=== PATIENT | female | born 1990 | race Caucasian/White ===

== ENCOUNTER 2018-10-10 09:19 | Emergency (ER) | payer SELFPAY ==
[2018-10-10 10:58] VITALS: BMI 31.2
[2018-10-10 11:13] LABS: SQUAMOUS EPITHIAL < 1 /hpf (0-5); URINE BACTERIA RARE (<OCC); URINE BILIRUBIN NEGATIVE (NEGATIVE); URINE BLOOD NEGATIVE (NEGATIVE); URINE CLARITY SLIGHTY-CLOUDY (Clear); URINE COLOR YELLOW (YELLOW); URINE GLUCOSE (UA) NEG (NEGATIVE); URINE LEUKOCYTE ESTERASE LARGE Leu/uL (Negative); URINE PROTEIN NEGATIVE (NEGATIVE); URINE UROBILINOGEN 0.2-1.0 mg/dL (0.2-1.0)
[2018-10-10] MEDS ORDERED: Lactated Ringer's 1,000 ML IV SCH (11:30)
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
[2018-10-10 11:53] LABS: HEMOGLOBIN 13.3 g/dL (12.0-16.0); MEAN CORPUSCULAR HEMOGLOBIN 28.9 pg (27.0-31.0); RBC 4.61 Mil/uL (3.80-5.20); RED CELL DISTRIBUTION WIDTH 14.6 % (11.5-14.5); WHITE BLOOD COUNT 9.3 K/uL (4.8-10.8)
--- NOTE | 2018-10-10 13:14 | OBPN ---
Datetime: 10/10/2018 13:09 IP Progress Note Comment: Patient comfortable without complaints. Plan to check BPP. heart t racing with moderate variability. No decelerations. I discussed plan with patient and all patient q uestions answered. Datetime: 10/10/2018 10:07 Pool Provider: Negative Nitrazine Provider: Negative Ferning Provider: Negative FHR - Baseline A Provider: 150 Gestation - Est Wks by US: 38.5 Vital Signs Provider: Reviewed Vital Signs Provider Details: Blood pressure in high 130s NICHD Accel Fetus A IP Provider: 15X15 FHR Category Provider Fetus A: Category I NICHD Variability Prov Fetus A: Moderate 6-25bpm NICHD Decel Fetus A IP Provider: None
--- NOTE | 2018-10-10 16:08 | US ---
Date of service: 10/10/2018 PROCEDURE: OB Pelvic Ultrasound HISTORY: LMP: 01/13/2018. EGA based on LMP = 38 weeks 4 days COMPARISON: None available. FINDINGS: Biophysical profile: breathing movement = 2 movement = 2 Tone = 2 Amniotic Fluid = 2 Heart rate documented at 145 BPM Dedicated anatomy survey not performed during this exam UTERUS: CERVIX: Measures cm. Long and closed. No cervical abnormality seen. RIGHT OVARY: Measures cm. No mass lesion. Normal flow. LEFT OVARY: Measures cm. No solid mass. Normal flow. FREE FLUID: None. OTHER FINDINGS: None. IMPRESSION: Living intrauterine gestation with Biophysical profile total score = 8/8 Heart rate document at 145 BPM
[2018-10-10] MEDS ORDERED: Terconazole 7 cream 45gm VG SCH (22:00)
[2018-10-10 22:57] VITALS: BP 138/78; PULSE 57; RESP 20; TEMP 98.2; O2SAT 100
== END 2018-10-10 14:45 | disposition home or self-care (01) ==
LOC: H.EROB2 09:19
DX: O34.63 Maternal care for abnormality of vagina, third trimester (principal); N89.8 Other specified noninflammatory disorders of vagina; Z87.59 Personal history of other complications of pregnancy, childbirth and the puerperium; Z3A.38 38 weeks gestation of pregnancy
CPT/HCPCS: 76818; 81003; 85027; 86592; 86850; 86900; 87390; 99284; J7120

== ENCOUNTER 2018-10-11 01:27 | Inpatient (IN) | payer MEDICAID, SELFPAY ==
[2018-10-11] MEDS ORDERED: Oxytocin 10 Units/ml Inj ONE (01:48)
[2018-10-11 01:53] VITALS: BMI 29.5
[2018-10-11] MEDS ORDERED: Lactated Ringer's 1,000 ML IV ONE (01:57)
[2018-10-11] MEDS ORDERED: Oxytocin 30 UNIT in NS 500 ml 30 UNITS/500 ML BAG IV ONE (01:57)
[2018-10-11] MEDS ORDERED: Oxycodone/Acetaminophen 5/325 mg Tab PO PRN ×4 (02:00→03:26)
[2018-10-11] MEDS ORDERED: Benzocaine/Menthol SPRAY TOP PRN ×2 (02:00→03:26)
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
[2018-10-11 02:45] LABS: BASO # 0.1 K/uL (0.0-0.2); BASO % 0.7 % (0.0-2.0); EOS # 0.3 K/uL (0.0-0.7); EOS % 2.2 % (0.0-4.0); MEAN CELL VOLUME 85.3 fl (81.0-99.0); MEAN CORPUSCULAR HEMOGLOBIN 29.3 pg (27.0-31.0); MEAN CORPUSCULAR HGB CONC 34.3 g/dL (33.0-37.0); MEAN PLATELET VOLUME 10.3 fl (7.2-11.7); MONO # 1.3 K/uL (0.0-0.8); MONO % 9.9 % (0.0-10.0); NEUT # 7.6 K/uL (1.8-7.0); NEUT % 57.2 % (50.0-75.0); NRBC % 0.2 % (0.0-0.0); RBC 4.78 Mil/uL (3.80-5.20); RED CELL DISTRIBUTION WIDTH 14.9 % (11.5-14.5); WHITE BLOOD COUNT 13.4 K/uL (4.8-10.8)
[2018-10-11 03:14] VITALS: O2SAT 100
[2018-10-11] MEDS ORDERED: Multivitamin With Minerals Tab PO SCH (09:00)
[2018-10-11] MEDS: Multivitamin With Minerals Tab PO SCH (09:12)
--- NOTE | 2018-10-11 11:03 | OBPPN ---
Datetime: 10/11/2018 10:57 PP Pain Prov: Within normal limits PP Nausea Prov: Denies PP Flatus Prov: Yes PP Breasts Prov: Normal PP Heart Prov: Normal PP Lungs Prov: Normal PP Abdomen/Uterus Prov: Normal PP Lochia Prov: Normal PP Vulva/Perineum Prov: Normal PP CVA Tenderness Prov: Normal PP Extremities Prov: Normal PP Comments Phys Exam Prov: Fundus firm under umbilicus PP Impression Prov: Normal progression PP Plan Prov: Continue present management PP Progress Note Prov: Patient denies CP, no SOB, no N/v, tolerating PO diet, ambulating/voiding wel l, mild lochia, abdominal pain tolerable with meds, mild lochia A/P PPD #0 1. Continue orders 2. Encourage ambulation/ 3. Motrin prn pain IP PP Procedures: None Vital Signs Provider PP: Reviewed; Within Normal Limits
[2018-10-12 06:26] LABS: BASO # 0.1 K/uL (0.0-0.2); BASO % 1.1 % (0.0-2.0); EOS # 0.5 K/uL (0.0-0.7); EOS % 4.7 % (0.0-4.0); HEMOGLOBIN 12.1 g/dL (12.0-16.0); LYMPH # 2.9 K/uL (1.0-4.3); LYMPH % 25.8 % (20.0-40.0); MEAN CELL VOLUME 87.1 fl (81.0-99.0); MEAN CORPUSCULAR HEMOGLOBIN 28.9 pg (27.0-31.0); MEAN CORPUSCULAR HGB CONC 33.1 g/dL (33.0-37.0); MEAN PLATELET VOLUME 9.6 fl (7.2-11.7); MONO # 0.7 K/uL (0.0-0.8); MONO % 6.4 % (0.0-10.0); NEUT # 6.9 K/uL (1.8-7.0); NRBC % 0.2 % (0.0-0.0); RBC 4.2 Mil/uL (3.80-5.20); RED CELL DISTRIBUTION WIDTH 14.8 % (11.5-14.5); WHITE BLOOD COUNT 11.1 K/uL (4.8-10.8)
[2018-10-12] MEDS: Multivitamin With Minerals Tab PO SCH (08:34)
--- NOTE | 2018-10-12 10:28 | OBDS ---
DELIVERY PERSONNEL Delivery Doctor: Ran Vega DO Press Operator Automatic: Jaylin Mcdaniel RN MATERNAL INFORMATION Delivery Anesthesia: None Medications in Delivery: pitocin Estimated Blood Loss (ml): 100 Placenta Cultured: No Maternal Complications: None Provider Comments: Over itnact perineum of live female jude. She was oushing, infant was st ill in bag of waster when head came out. was crying, cord cut and baby placed o mother's [address] for skin to skin. Placetna was delivered intact spontaneously. No laceation noted EBL 100cc She remained stable LABOR SUMMARY EDC: 10/20/2018 00:00 EDC: 10/20/2018 00:00 EDC: 10/10/2018 00:00 No. Babies in Womb: 1 Attempted: Yes Labor Anesthesia: None LABOR INFORMATION Reason for Induction: Not Applicable Onset of Labor: 10/10/2018 22:00 Complete Dilatation: 10/11/2018 01:40 Oxytocin: N/A Group B Beta Strep: Negative Antibiotics # of Doses: 0 Antibiotics Time of Last Dose: n/a Steroids Given: None Reason Steroids Not Administered: Not Applicable MEMBRANES Membranes Rupture Method: Artificial Rupture of Membranes: 10/11/2018 01:45 Length of Rupture (hrs): 0.00 Amniotic Fluid Color: Clear Amniotic Fluid Amount: Moderate Amniotic Fluid Odor: None STAGES OF LABOR Stage 1 hrs: 3 Stage 1 min: 40 Stage 2 hrs: 0 Stage 2 min: 5 Stage 3 hrs: 0 Stage 3 min: 2 Total Time in Labor hrs: 3 Total Time in Labor min: 47 VAGINAL DELIVERY Episiotomy: None Laceration Extension: N/A Laceration Type: None Laceration Repair: Not Applicable Initial Vag Sponge Count: 5 Final Vag Sponge Count: 5 Initial Vag Sharps Count: 0 Final Vag Sharps Count: 0 Sponge Count Correct: Yes Sharps Count Correct: N/A Count Comment: 5 laps pads BABY A INFORMATION Delivery Date/Time: 10/11/2018 01:45 Method of Delivery: Vaginal Born in Route : No : Successful Forceps: N/A Vacuum Extraction: N/A Shoulder Dystocia : No SHOULDER DYSTOCIA BABY A Infant Delivery Date/Time: 10/11/2018 01:45 PRESENTATION/POSITION BABY A Presentation: Cephalic Cephalic Presentation: Vertex Breech Presentation: N/A PLACENTA INFORMATION BABY A Placenta Delivery Time : 10/11/2018 01:47 Placenta Method of Delivery: Spontaneous Placenta Status: Delivered SCORES BABY A Heart Rate 1 min: >100 bpm Resp Effort 1 min: Good Cry Reflex Irritability 1 min: Cough or Sneeze or Pulls Away Muscle Tone 1 min: Active Motion Color 1 min: Body [place], Extremities Blue Resuscitation Effort 1 min: Tactile Stimulation SCORE 1 MIN: 9 Heart Rate 5 min: >100 bpm Resp Effort 5 min: Good Cry Reflex Irritability 5 min: Cough or Sneeze or Pulls Away Muscle Tone 5 min: Active Motion Color 5 min: Body [place], Extremities Blue Resuscitation Effort 5 min: Tactile Stimulation SCORE 5 MIN: 9 INFORMATION BABY A Gestational Age at Delivery: 38.5 Gestational Status: Term Outcome : Liveborn Condition : Stable Infant Sex: Female IDENTIFICATION/MEDS BABY A ID Band Number: [id number] ID Band Location: Left Leg; Left Arm WEIGHT/LENGTH BABY A Birthweight (gms): 2410 Weight (lb): 5 Infant Weight (oz): 5 CORD INFORMATION BABY A No. Cord Vessels: 3 Nuchal Cord : N/A Cord Blood Taken: Yes Infant Suction: Mouth; Nose ASSESSMENT BABY A Complications: None Physical Findings at Delivery: Within Normal Limits Infant Respirations: Appears Normal Forging Press Setter Up/ALS Called : No Care By: Aramis Daly RN / Dr Avalos Transferred To: Remains with Mother
--- NOTE | 2018-10-12 10:30 | OBDS ---
DELIVERY PERSONNEL Delivery Doctor: Ran Vega DO Industrial Relations Specialist: Jaylin Mcdaniel RN MATERNAL INFORMATION Delivery Anesthesia: None Medications in Delivery: pitocin Estimated Blood Loss (ml): 100 Placenta Cultured: No Maternal Complications: None Provider Comments: Over itnact perineum of live female jude. She was oushing, infant was st ill in bag of waster when head came out. was crying, cord cut and baby placed o mother's [address] for skin to skin. Placetna was delivered intact spontaneously. No laceation noted EBL 100cc She remained stable LABOR SUMMARY EDC: 10/20/2018 00:00 No. Babies in Womb: 1 Attempted: Yes Labor Anesthesia: None LABOR INFORMATION Reason for Induction: Not Applicable Onset of Labor: 10/10/2018 22:00 Complete Dilatation: 10/11/2018 01:40 Oxytocin: N/A Group B Beta Strep: Negative Antibiotics # of Doses: 0 Antibiotics Time of Last Dose: n/a Steroids Given: None Reason Steroids Not Administered: Not Applicable MEMBRANES Membranes Rupture Method: Artificial Rupture of Membranes: 10/11/2018 01:45 Length of Rupture (hrs): 0.00 Amniotic Fluid Color: Clear Amniotic Fluid Amount: Moderate Amniotic Fluid Odor: None STAGES OF LABOR Stage 1 hrs: 3 Stage 1 min: 40 Stage 2 hrs: 0 Stage 2 min: 5 Stage 3 hrs: 0 Stage 3 min: 2 Total Time in Labor hrs: 3 Total Time in Labor min: 47 VAGINAL DELIVERY Episiotomy: None Laceration Extension: N/A Laceration Type: None Laceration Repair: Not Applicable Initial Vag Sponge Count: 5 Final Vag Sponge Count: 5 Initial Vag Sharps Count: 0 Final Vag Sharps Count: 0 Sponge Count Correct: Yes Sharps Count Correct: N/A Count Comment: 5 laps pads BABY A INFORMATION Delivery Date/Time: 10/11/2018 01:45 Method of Delivery: Vaginal Born in Route : No : Successful Forceps: N/A Vacuum Extraction: N/A Shoulder Dystocia : No SHOULDER DYSTOCIA BABY A Delivery Date/Time: 10/11/2018 01:45 PRESENTATION/POSITION BABY A Presentation: Cephalic Cephalic Presentation: Vertex Breech Presentation: N/A PLACENTA INFORMATION BABY A Placenta Delivery Time : 10/11/2018 01:47 Placenta Method of Delivery: Spontaneous Placenta Status: Delivered SCORES BABY A Heart Rate 1 min: >100 bpm Resp Effort 1 min: Good Cry Reflex Irritability 1 min: Cough or Sneeze or Pulls Away Muscle Tone 1 min: Active Motion Color 1 min: Body [place], Extremities Blue Resuscitation Effort 1 min: Tactile Stimulation SCORE 1 MIN: 9 Heart Rate 5 min: >100 bpm Resp Effort 5 min: Good Cry Reflex Irritability 5 min: Cough or Sneeze or Pulls Away Muscle Tone 5 min: Active Motion Color 5 min: Body [place], Extremities Blue Resuscitation Effort 5 min: Tactile Stimulation SCORE 5 MIN: 9 INFANT INFORMATION BABY A Gestational Age at Delivery: 38.5 Gestational Status: Term Infant Outcome : Liveborn Condition : Stable Sex: Female IDENTIFICATION/MEDS BABY A ID Band Number: [id number] ID Band Location: Left Leg; Left Arm WEIGHT/LENGTH BABY A Birthweight (gms): 2410 Infant Weight (lb): 5 Infant Weight (oz): 5 CORD INFORMATION BABY A No. Cord Vessels: 3 Nuchal Cord : N/A Cord Blood Taken: Yes Suction: Mouth; Nose ASSESSMENT BABY A Complications: None Physical Findings at Delivery: Within Normal Limits Respirations: Appears Normal Air Support Control Officer/ALS Called : No Care By: Aramis Daly RN / Dr Avalos Transferred To: Remains with Mother
--- NOTE | 2018-10-12 10:48 | OBPPN ---
Datetime: 10/12/2018 06:30 PP Pain Prov: Within normal limits PP Nausea Prov: Denies PP Flatus Prov: Yes PP BM Prov: No PP Breasts Prov: Not Done PP Heart Prov: Normal PP Lungs Prov: Normal PP Abdomen/Uterus Prov: Normal PP Lochia Prov: Normal PP Vulva/Perineum Prov: Not Done PP Extremities Prov: Normal PP C/S Incision Prov: Not Applicable PP Progress Prov: Normal PP Impression Prov: Normal progression PP Plan Prov: Continue present management PP Progress Note Prov: Patient seen and examined at bedside, doing well on PPD#1 She denies n/v. Endorses lochia less than menses. Passing flatus, but no BM. without difficulties. ROS: all systems reviewed and negative except per HPI Physical exam: Gen: Sitting up comfortably in bed Heart: S1S2 Present, RRR Lungs: normal breathing pattern, clear to auscultation bilaterally Abd: Normal bowel sounds, soft, non-tender. Fundus at umbilicus Extremities: no swelling/erythema/tenderness Psych: Mood appropriate, good eye contact Assessment and Plan 28 y/o female on PPD1 s/p on 10/11/2017 1. Continue orders 2. Encourage ambulation/ 3. Motrin prn pain Case discussed w/ attending pablo Enriquez OB hospitalist on-call: On orunds, I saw this patient. Agree with PGY1 note Matthew HOLLOWAY PP Procedures: None Vital Signs Provider PP: Reviewed; Within Normal Limits
[2018-10-13 03:11] VITALS: BP 137/78; PULSE 73; RESP 20; TEMP 98.6
--- NOTE | 2018-10-13 07:51 | OBDCSUM ---
Datetime: 10/10/2018 14:23 Discharge Diagnosis, Provider: Term Delivered Discharge Comment, Provider: Discharge Summary DOA: 10/11/2018 EGA: 38.5 Diagnosis: S/P Normal Vaginal delivery on 10/11/18. Summary of : 28 y/o s/p normal VD. L_D summary: Pt is s/p vaginal delivery. Pain was well controlled with pain meds. No nausea. Marcelina ated regular diet well. Passing flatus and had a BM. Voiding well w/o difficulties. Breast and formul a feeding without difficulty. Lochia is similar to menses volume. DOL: 10/11/18 @ 1:45 NB: F : 9/9 Weight: 2410 gm Lochia less menses, mild pain, controlled with medications Blood type: O+, Antibody- aCBC:14./40.8 pCBC: 12.1/36.6 Discharge Date: 10/12/2018 Discharge Instructions: -Encourage -Encourage ambulation -Ibuprofen mild to moderate pain -Continue vitamins at home - ED precautions: If excessive bleeding, pain that does not get relief, fever >100.4, palpitations , SOB, CP or other concerning symptom go to the ED. - PT was urged if feeling sad, mood swing, depression, neglect of baby, suicidal thoughts, homicid al thoughts go to ER or call 911 for help - Pt should go to her Primary care doctor if have difficulty with breast feeding - F[facility]U at [facility] within 4-6 weeks for checkup. Brooke Lau, [facility] transition mgr rn - notified that she wants to go home PP1 - no problems. SULLY
== END 2018-10-12 19:45 | disposition home or self-care (01) | DRG 560 ==
LOC: H.EROB2 01:27 → H.L&D 01:57 → H.OB/GYN 04:15
PROVIDERS: ADMIT Obstetrics & Gynecology; ATTEND Obstetrics & Gynecology
PROC: 10E0XZZ Delivery of Products of Conception, External Approach (ICD-10-PCS; principal; 2018-10-11)
PROC: 4A1HXCZ Monitoring of Products of Conception, Cardiac Rate, External Approach (ICD-10-PCS; 2018-10-11)
DX: O34.211 Maternal care for low transverse scar from previous cesarean delivery (principal); N85.8 Other specified noninflammatory disorders of uterus; Z37.0 Single live birth; Z3A.38 38 weeks gestation of pregnancy